=== PATIENT | male | born 1995 | race Caucasian/White ===

== ENCOUNTER 2022-03-30 15:37 | Emergency (ER) | payer OTHER, SELFPAY ==
--- NOTE | ~2022-03-30 | XR_ITS ---
Left ankle Technique: AP, oblique, and lateral views were obtained. Clinical History: Pain Findings: No acute fracture or dislocation is seen. Osseous alignment is anatomic. Ankle mortise and other visualized joint spaces are preserved. Mild lateral soft tissue swelling noted. Impression: No fracture or dislocation. Lateral soft tissue swelling. Reviewed, dictated and finalized at [facility]. [employer] Impression: No fracture or dislocation. Lateral soft tissue swelling.
[2022-03-30 15:57] VITALS: BP 118/76; PULSE 68; RESP 18; TEMP 36.8; O2SAT 98
[2022-03-30 15:59] VITALS: BP 118/76; PULSE 68; RESP 18; TEMP 36.8; O2SAT 98
--- NOTE | 2022-03-30 16:07 | ED.LOWEXIN ---
HPI - Extremity Injury (Lower) General Chief Complaint: Extremity Injury, Lower Stated Complaint: lt ankle injury Time Seen by Provider: 03/30/22 16:20 Source: patient Mode of arrival: ambulatory Limitations: no limitations History of Present Illness HPI Narrative: 26 y/o male presented for c/o left ankle pain and swelling after injury today while playing pickleball. patient does not recall all of the events, he states he tripped while playing and must have rolled the ankle. He states others heard a pop. He denies numbness, tingling, weakness of the foot. He endorses pain and swelling to the outside of the ankle. Denies hitting his head or LOC. Related Data Home Medications Medication Instructions Recorded Confirmed No Home Medications 03/30/22 03/30/22 Allergies Allergy/AdvReac Type Severity Reaction Status Date / Time No Known Allergies Allergy Verified 03/30/22 15:58 Review of Systems Review of Systems: CONSTITUTIONAL: Denies body aches, fever, chills EYES: Denies visual changes ENT: Denies rhinorrhea, congestion CARDIOVASCULAR: Denies chest pain, palpitations, or edema. RESPIRATORY: Denies cough or dyspnea. GASTROINTESTINAL: Denies abdominal pain, nausea, vomiting, or diarrhea. SKIN: Denies rash, itching, or wounds. MUSCULOSKELETAL: per HPI. NEUROLOGIC: Denies headache, numbness, tingling, or weakness. PSYCH: Denies depression or anxiety. All systems reviewed & are unremarkable except as noted in HPI and below PMFSH Comments At time of signature, I have reviewed and agree with nursing past medical, surgical, social and family history unless otherwise noted. Please see nursing chart for further information. There is no relevant family history pertinent to the presenting complaint Exam Narrative: GENERAL: Well-appearing CHEST: Speaks in full sentences. No respiratory distress. HEART: Regular rate and rhythm. Normal and equal peripheral pulses. EXTREMITIES: Left ankle with mild lateral swelling and tenderness with palpation. No bruising. Foot has normal strength and sensation, slightly limited range of motion at the ankle. No open wounds, or obvious deformity; alignment normal, pulse palpable and equal bilaterally, skin warm, dry, pink. Capillary refill less than 3 seconds. SKIN: Warm, dry, no rash. NEURO: Alert and oriented x3. PSYCH: Normal mood and affect Course Course Emergency Course: Patient is aware of diagnosis, understands and agrees to treatment plan. Anticipatory guidance given. Patient agrees to follow-up as directed and is aware of reasons to seek care at the emergency department. Portions of this record may have been created with voice recognition software Level of Care: Express Care Visit Vital Signs Vital signs: Vital Signs Temperature 98.3 F 03/30/22 15:57 Pulse Rate 68 03/30/22 15:57 Respiratory Rate 18 03/30/22 15:57 Blood Pressure 118/76 03/30/22 15:57 Pulse Oximetry 98 03/30/22 15:57 Oxygen Delivery Room Air 03/30/22 15:57 Temperature 98.3 F 03/30/22 15:59 Pulse Rate 68 03/30/22 15:59 Respiratory Rate 18 03/30/22 15:59 Blood Pressure 118/76 03/30/22 15:59 Pulse Oximetry 98 03/30/22 15:59 Oxygen Delivery Room Air 03/30/22 15:59 Reviewed Procedures Orthopedic Splinting/Casting Left ankle: Lower Extremity Immobilizer: Colby wrap MDM - Extremity Injury (Lower) MDM Narrative Medical decision making narrative: Results of x-ray reviewed patient. Colby wrap applied to the left ankle. Advised supportive measures and signs/symptoms to go to the ER. Pt is appropriate for outpt treatment and f/u. Imaging Data Radiologist's impression: Patient: Marcus Veliz : 1995 MR#: [id number] Age/Sex: 26 / M Acct:[id number] Loc: [facility]? ? ADM Date: 03/30/22Attending Dr: Ordering Physician: Cee Hampton APRN Date of Service: 03/30/22 Procedure(s): XR ankle LT min 3V Accession Number(s): [id number]
== END 2022-03-30 16:33 | disposition home or self-care (01) ==
PROVIDERS: Emergency Provider Nurse Practitioner Family
DX: S93.402A Sprain of unspecified ligament of left ankle, initial encounter (principal); S96.912A Strain of unspecified muscle and tendon at ankle and foot level, left foot, initial encounter; W18.40XA Slipping, tripping and stumbling without falling, unspecified, initial encounter
CPT/HCPCS: 73610; 99213; G0463